=== PATIENT | female | born 1980 | race Caucasian/White ===

== ENCOUNTER → 2023-11-18 10:06 | Outpatient (REF) | payer BC, SELFPAY | LOC: RCS 10:06 | PROVIDERS: ATTENDING PHYSICIAN Internal Medicine Cardiovascular Disease; FAMILY PHYSICIAN Physician Assistant Medical | DX: R07.2 Precordial pain (principal) | CPT/HCPCS: 93017; 93350 ==

== ENCOUNTER → 2024-03-21 12:44 | Outpatient (REF) | payer BC, SELFPAY | LOC: WDC 12:44 | PROVIDERS: ATTENDING PHYSICIAN Physician Assistant Medical | DX: Z12.31 Encounter for screening mammogram for malignant neoplasm of breast (principal) | CPT/HCPCS: 77063; 77067 ==

== ENCOUNTER → 2025-03-22 10:51 | Outpatient (REF) | payer BC, SELFPAY | LOC: WDC 10:51 | PROVIDERS: ATTENDING PHYSICIAN Physician Assistant Medical | DX: Z12.31 Encounter for screening mammogram for malignant neoplasm of breast (principal) | CPT/HCPCS: 77063; 77067 ==